=== PATIENT | male | born 1995 | race Caucasian/White ===

== ENCOUNTER 2021-01-29 20:19 | Emergency (ER) | payer SELFPAY ==
[~2021-01-29] VITALS: Ht 177.8 cm; Wt 84.1 kg
[2021-01-29 21:17] VITALS: BP 121/70; PULSE 78; TEMP 97.8
== END 2021-01-29 21:20 | disposition home or self-care (01) ==
LOC: COL.ER 20:19
DX: S01.01XA Laceration without foreign body of scalp, initial encounter (principal); W20.8XXA Other cause of strike by thrown, projected or falling object, initial encounter

== ENCOUNTER → 2021-02-04 | Outpatient (CLI) | payer SELFPAY ==
[2021-02-04 21:45] VITALS: BP 136/79; PULSE 75; TEMP 97.7
== END ==
LOC: COL.ER 21:22
DX: Z48.02 Encounter for removal of sutures (principal)

== ENCOUNTER → 2022-08-20 | Outpatient (CLI) | payer OTHER | LOC: COL.RAD 09:51 | DX: R10.32 Left lower quadrant pain (principal) ==